=== PATIENT | male | born 1945 | race Caucasian/White ===

== ENCOUNTER 2021-04-15 13:57 | Inpatient (IN) ==
[~2021-04-15 13:57] MED LIST: LIDOCAINE 1% 20 ML VIAL ONE; MIDAZOLAM 2 MG/2 ML VIAL ONE; fentaNYL 100 MCG/2 ML VIAL ONE
[2021-04-15] MEDS ORDERED: ENOXAPARIN 30 MG/0.3 ML SYRINGE ONE (14:03)
[2021-04-15] MEDS ORDERED: TIROFIBAN 5,000 MCG/100 ML PREMIX IV ONE (14:04)
[2021-04-15] MEDS ORDERED: TICAGRELOR 90 MG TABLET ONE (14:56)
[2021-04-15 14:58] LABS: Basophils # 0.1 10*3/uL (0.0-0.2); Basophils % 1.3 % (0.0-0.8); Eosinophils # 0.1 10*3/uL (0.0-0.87); Eosinophils % 1.2 % (0.00-10.9); Hematocrit 46.4 VOL% (42.0-52.0); Hemoglobin 15.1 GM/DL (14.0-18.0); Immature Granulocytes % 0.9 %; Immature Granulocytes Absolute 0.06 #; Lymphocytes # 0.6 10*3/uL (1.4-4.0); Lymphocytes % 8.7 % (21.2-54.2); Mean Corpuscular HGB Conc 32.5 GM/DL (32-36); Mean Corpuscular Volume 91.9 FL (87-102); Monocytes % 5.6 % (1.7-12.7); Neutrophils % 82.3 % (38.7-73.9); Platelet Count 198 T/CUMM (130-400); Red Blood Count 5.05 MC/CUMM (3.8-5.5); Red Cell Distribution Width 13.5 % (9.3-17.3); White Blood Count 6.9 T/CUMM (4-12)
[2021-04-15] MEDS ORDERED: ONDANSETRON 4 MG/2 ML VIAL IV PRN (14:58)
[2021-04-15] MEDS ORDERED: MORPHINE 2 MG/1 ML SYRINGE IV PRN (14:58)
[2021-04-15] MEDS ORDERED: ZALEPLON 5 MG CAPSULE PO PRN (14:58)
[2021-04-15] MEDS ORDERED: NITROGLYCERIN SL 0.4 MG TABLET SL PRN (14:58)
[2021-04-15] MEDS ORDERED: ACETAMINOPHEN 325 MG TABLET PO PRN (14:58)
[2021-04-15] MEDS ORDERED: SODIUM CHLORIDE 0.9% 1,000 ML IV SCH (15:00)
[2021-04-15] MEDS: TIROFIBAN 5,000 MCG/100 ML PREMIX IV SCH (15:11)
[2021-04-15 15:33] LABS: CKMB % 10.6 %
[2021-04-15 15:40] LABS: Albumin 3.3 G/DL (3.4-5.0); Bilirubin,Total 0.5 MG/DL (0.20-1.00); Calcium 7.7 MG/DL (8.5-10.1); Osmolality,Calculated 276.1 MOS/KG (273-304); Potassium 3.8 MMOL/L (3.5-5.1); Total Protein 6.3 G/DL (6.4-8.2)
[2021-04-15 15:45] LABS: High Sensitive Troponin I* 47775.7 ng/L (0-78)
[2021-04-15] MEDS ORDERED: TICAGRELOR 90 MG TABLET PO SCH (21:00)
[2021-04-15] MEDS ORDERED: ROSUVASTATIN 20 MG TABLET PO SCH (21:00)
[2021-04-15] MEDS: carvediloL 6.25 MG TABLET PO SCH (21:04)
[2021-04-16 05:28] LABS: Basophils # 0.1 10*3/uL (0.0-0.2); Basophils % 1.1 % (0.0-0.8); Eosinophils # 0.1 10*3/uL (0.0-0.87); Eosinophils % 1.7 % (0.00-10.9); Hematocrit 45.3 VOL% (42.0-52.0); Hemoglobin 14.5 GM/DL (14.0-18.0); Immature Granulocytes % 0.5 %; Immature Granulocytes Absolute 0.04 #; Lymphocytes % 12.5 % (21.2-54.2); Mean Corpuscular Volume 93.8 FL (87-102); Mean Platelet Volume 10.2 FL (9.6-12.0); Monocytes % 10.4 % (1.7-12.7); Neutrophils % 73.8 % (38.7-73.9); Platelet Count 196 T/CUMM (130-400); Red Blood Count 4.83 MC/CUMM (3.8-5.5); Red Cell Distribution Width 13.9 % (9.3-17.3); White Blood Count 8.2 T/CUMM (4-12)
[2021-04-16 06:27] LABS: Alanine Aminotransferase 76 U/L (16-61); Alkaline Phosphatase 77 U/L (45-117); Aspartate Amino Transferase 289 U/L (0-37); Blood Urea Nitrogen 17 MG/DL (7-18); CKMB % 15.2 %; Calcium 8.1 MG/DL (8.5-10.1); Carbon Dioxide 24 MMOL/L (21-32); Estimated Glom Filtration Rate 83 ML/MIN; Glucose 162 MG/DL (74-106); HDL Cholesterol 18 MG/DL (40-60); Osmolality,Calculated 278.8 MOS/KG (273-304); Potassium 3.8 MMOL/L (3.5-5.1); Risk Ratio 7.56; Sodium 137 MMOL/L (136-145); Triglycerides 418 MG/DL (2-150); VLDL Cholesterol 83.6 MG/DL
[2021-04-16 06:37] LABS: High Sensitive Troponin I* > 125000 ng/L (0-78)
[2021-04-16] MEDS ORDERED: CLOPIDOGREL 300 MG TABLET PO ONE (07:14)
[2021-04-16] MEDS: ASPIRIN EC 81 MG TABLET PO SCH (08:00)
[2021-04-16] MEDS: LOSARTAN 25 MG TABLET PO SCH (08:00)
[2021-04-16] MEDS: PANTOPRAZOLE 40 MG TABLET PO SCH (08:00)
[2021-04-16] MEDS: ROSUVASTATIN 20 MG TABLET PO SCH (08:00)
[2021-04-16] MEDS: carvediloL 6.25 MG TABLET PO SCH ×2 (08:01→20:35)
[2021-04-16] MEDS: TIROFIBAN 5,000 MCG/100 ML PREMIX IV SCH (10:53)
[2021-04-16] MEDS ORDERED: diphenhydrAMINE CAP 25 MG CAPSULE PO PRN (15:42)
[2021-04-17 07:10] LABS: Basophils # 0.1 10*3/uL (0.0-0.2); Basophils % 1.1 % (0.0-0.8); Eosinophils # 0.3 10*3/uL (0.0-0.87); Eosinophils % 3.6 % (0.00-10.9); Hematocrit 44.4 VOL% (42.0-52.0); Hemoglobin 13.8 GM/DL (14.0-18.0); Immature Granulocytes % 0.9 %; Immature Granulocytes Absolute 0.06 #; Lymphocytes # 1.1 10*3/uL (1.4-4.0); Lymphocytes % 15.7 % (21.2-54.2); Mean Corpuscular HGB Conc 31.1 GM/DL (32-36); Mean Corpuscular Volume 96.3 FL (87-102); Mean Platelet Volume 10.7 FL (9.6-12.0); Neutrophils % 68.7 % (38.7-73.9); Platelet Count 176 T/CUMM (130-400); Red Blood Count 4.61 MC/CUMM (3.8-5.5); Red Cell Distribution Width 14.1 % (9.3-17.3)
[2021-04-17 07:44] LABS: Calcium 8.1 MG/DL (8.5-10.1); Osmolality,Calculated 276.8 MOS/KG (273-304); Potassium 3.7 MMOL/L (3.5-5.1)
[2021-04-17] MEDS: ASPIRIN EC 81 MG TABLET PO SCH (08:49)
[2021-04-17] MEDS: LOSARTAN 25 MG TABLET PO SCH (08:49)
[2021-04-17] MEDS: PANTOPRAZOLE 40 MG TABLET PO SCH (08:49)
[2021-04-17] MEDS: ROSUVASTATIN 20 MG TABLET PO SCH (08:50)
[2021-04-17] MEDS: carvediloL 6.25 MG TABLET PO SCH (08:50)
[2021-04-17] MEDS ORDERED: CLOPIDOGREL 75 MG TABLET PO SCH (09:00)
[2021-04-17] MEDS ORDERED: LEVOFLOXACIN 500 MG TABLET PO SCH (09:00)
[2021-04-17 09:31] VITALS: BP 104/66
[2021-04-18] MEDS ORDERED: METOPROLOL SUCCINATE XL 25 MG TABLET PO SCH (09:00)
== END 2021-04-17 15:04 | disposition home or self-care (01) | DRG 247 ==
LOC: N.ADMINP 13:57 → N.ICU 15:02 → N.TELEN 04-16 09:40
PROVIDERS: ADMIT Internal Medicine Cardiovascular Disease; ATTEND Internal Medicine Cardiovascular Disease
PROC: CLCCHCL (ICD-10-PCS; 2021-04-15 14:45)